=== PATIENT | male | born 1995 | race Caucasian/White ===

== ENCOUNTER 2017-04-20 22:37 | Emergency (ER) | payer MEDICAID ==
[~2017-04-20] VITALS: Ht 172.7 cm; Wt 93.0 kg
--- NOTE | 2017-04-20 22:37 | NUR ---
Patient ran to bed 10.
--- NOTE | 2017-04-20 22:38 | NUR ---
Dr. Cortez evaluating patient at bedside.
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
[2017-04-20 22:42] VITALS: BP 143/89
[2017-04-20] MEDS ORDERED: HYDROmorphone PFS 2 MG/ML SYR IVP ONE (22:45)
[2017-04-20] MEDS ORDERED: NACL 0.9% 1,000 ML IV ONE (22:45)
--- NOTE | 2017-04-20 22:46 | NUR ---
XRAY AT BEDSIDE.
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
--- NOTE | 2017-04-20 23:06 | NUR ---
IV FLUIDS TRANSFERRED WITH PATIENT TO [facility].
--- NOTE | 2017-04-20 23:07 | NUR ---
Patient to be transferred to [facility]. Pt is being transferred due to higher level of care. Receiving facility has accepting physician and available space. ER physician has signed transfer form. Report called to Alex Andres RN at receiving facility. [facility] made aware to contact base prior to arrival. [facility] verbalized understanding. VSS upon transfer.
[2017-04-20 23:13] VITALS: BP 143/89
== END 2017-04-20 23:07 | disposition short-term general hospital (02) ==
LOC: MED 22:37
DX: S31.110A Laceration without foreign body of abdominal wall, right upper quadrant without penetration into peritoneal cavity, initial encounter (principal); W26.8XXA Contact with other sharp object(s), not elsewhere classified, initial encounter; Y93.89 Activity, other specified; Y92.89 Other specified places as the place of occurrence of the external cause; Y99.8 Other external cause status
CPT/HCPCS: 71010; 96374; 99291; J1170; Q0092